=== PATIENT | male | born 2000 | race Caucasian/White ===

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

== ENCOUNTER 2018-09-21 23:58 | Emergency (ER) | payer BC ==
[2018-09-22 00:03] VITALS: BP 104/59; PULSE 87; RESP 16; TEMP 97.5
[2018-09-22] MEDS ORDERED: SODIUM CHLORIDE 0.9% 1,000 ML IV STA (00:13)
[2018-09-22] MEDS ORDERED: KETOROLAC 30 MG/ML 1 ML VIAL IVP STA (00:13)
[2018-09-22] MEDS ORDERED: FAMOTIDINE 20 MG/2 ML VIAL IV STA (00:14)
[2018-09-22 00:39] LABS: Basophils % (A) 0 %; Eosinophils # (A) 0.2 k/uL (0-0.7); Eosinophils % (A) 3 %; HCT 43.8 % (39.0-53.0); HGB 14.1 gm/dL (13.0-17.5); Lymphocytes # (A) 1.8 k/uL (1.0-4.8); Lymphocytes % (A) 28 %; MCH 28.7 pg (25.0-35.0); MCHC 32.1 g/dL (31.0-37.0); MCV 89.4 fL (80.0-100.0); Mean Platelet Volume 8.4; Monocytes # (A) 0.4 k/uL (0-1.0); Monocytes % (A) 7 %; Neutrophils # (A) 3.8 k/uL (1.3-7.7); Neutrophils % (A) 60 %; Platelet Count 163 k/uL (150-450); RDW 14.1 % (11.5-15.5); WBC 6.4 k/uL (4.0-11.0)
[2018-09-22 00:49] LABS: ALT 30 U/L (21-72); AST 21 U/L (17-59); Albumin 3.3 g/dL (3.5-5.0); Alkaline Phosphatase 49 U/L (38-126); Amylase 49 U/L (30-110); Anion Gap 4 mmol/L; Blood Urea Nitrogen 17 mg/dL (9-20); Calcium 8.9 mg/dL (8.4-10.2); Carbon Dioxide 26 mmol/L (22-30); Chloride 114 mmol/L (98-107); Glucose 104 mg/dL (74-99); Lipase 59 U/L (23-300); Potassium 3.8 mmol/L (3.5-5.1); Sodium 144 mmol/L (137-145); Total Bilirubin 0.3 mg/dL (0.2-1.3); Total Protein 5.2 g/dL (6.3-8.2)
--- NOTE | 2018-09-22 01:05 | XR ---
EXAM: XR Kub CLINICAL HISTORY: ITS.REASON XR Reason: abdominal pain TECHNIQUE: X-ray kub. COMPARISON: 10/15/17 FINDINGS/IMPRESSION: 2 upright views of the abdomen/pelvis. IMPRESSION: Bowel gas pattern is nonobstructive. No free air is identified. Phlebolith in the right pelvis again noted. Of note, findings of enteritis seen on the previous CT would likely be occult by plain film, if present.
--- NOTE | 2018-09-22 01:59 | ED ---
Abdominal Pain HPI - General Chief Complaint: Abdominal Pain Stated Complaint: Abd Pain Time Seen by Provider: 09/22/18 00:06 Source: patient Limitations: no limitations - History of Present Illness Initial Comments: 18-year-old male patient presents to the emergency department today for evaluation of upper abdominal pain radiating through to his back. Patient states the pain started approximately one to 2 weeks ago. States that the pain worsens with eating and at times he is unable to eat. States he has been nauseated and has had a couple episodes of vomiting over the last couple of weeks. Patient denies any radiation of the pain into his chest. Denies any shortness of breath with this. Denies any constipation, diarrhea, hematuria, dysuria, urinary urgency, urinary frequency. Denies any history of abdominal surgery. Denies any use of medications. Denies any street drug or alcohol use. Patient denies any recent rash, shortness breath, numbness, tingling, dizziness, weakness, headache, visual changes, or any other complaints. - Related Data Previous Rx's Medication Instructions Recorded Famotidine [Pepcid] 20 mg PO DAILY #30 tablet 09/22/18 Allergies Allergy/AdvReac Type Severity Reaction Status Date / Time No Known Allergies Allergy Verified 09/22/18 00:03 Review of Systems ROS Statement: Those systems with pertinent positive or pertinent negative responses have been documented in the HPI. ROS Other: All systems not noted in ROS Statement are negative. Past Medical History Past Medical History: No Reported History History of Any Multi-Drug Resistant Organisms: None Reported Past Surgical History: No Surgical Hx Reported Past Psychological History: No Psychological Hx Reported Smoking Status: Current every day smoker Past Alcohol Use History: None Reported Past Drug Use History: None Reported General Exam Limitations: no limitations General appearance: alert, in no apparent distress, other (Physical well- developed, well-nourished adult male patient in no acute distress. Vital signs upon presentation are temperature 97.5F, pulse 87, respirations 16, blood pressure 104/59, pulse ox 98% on room air.) Eye exam: Present: normal appearance, PERRL, EOMI. Absent: scleral icterus, conjunctival injection, periorbital swelling ENT exam: Present: normal exam, normal oropharynx, mucous membranes moist Respiratory exam: Present: normal lung sounds bilaterally. Absent: respiratory distress, wheezes, rales, rhonchi, stridor Cardiovascular Exam: Present: regular rate, normal rhythm, normal heart sounds. Absent: systolic murmur, diastolic murmur, rubs, gallop, clicks GI/Abdominal exam: Present: soft, tenderness (Midepigastric tenderness), normal bowel sounds. Absent: distended, guarding, rebound, rigid Neurological exam: Present: alert, oriented X3, CN II-XII intact Psychiatric exam: Present: normal affect, normal mood Skin exam: Present: warm, dry, intact, normal color. Absent: rash Course Vital Signs 09/22/18 00:00 Temperature 97.5 F L Pulse Rate 87 Respiratory 16 Rate Blood Pressure 104/59 O2 Sat by Pulse 98 Oximetry Medical Decision Making - Medical Decision Making 18-year-old male patient presented to the emergency department today for evaluation of upper abdominal pain and nausea 2 weeks. Physical examination was relatively unremarkable. Some mild midepigastric tenderness. Labs reviewed and were unremarkable. Patient did receive Toradol and Pepcid here in the emergency department. Upon reevaluation is resting quite comfortably in bed and had difficulty waking him. Once awake he states he is feeling better. We did discuss possibility of gastritis versus, or dysfunction. He'll be discharged home to follow-up with his primary care physician to have outpatient ultrasound performed. He'll be given a prescription for Pepcid. Return parameters were discussed in detail. He verbalizes understanding and agrees with this plan. - Lab Data Result diagrams: 09/22/18 00:30 09/22/18 00:30 Lab Results 09/22/18 09/22/18 09/22/18 Range/Units 00:30 00:30 00:30 WBC 6.4 (4.0-11.0) k/uL RBC 4.90 (4.30-5.90) m/uL Hgb 14.1 (13.0-17.5) gm/dL Hct 43.8 (39.0-53.0) % MCV 89.4 (80.0-100.0) fL MCH 28.7 (25.0-35.0) pg MCHC 32.1 (31.0-37.0) g/dL RDW 14.1 (11.5-15.5) % Plt Count 163 (150-450) k/uL Neutrophils % 60 % Lymphocytes % 28 % Monocytes % 7 % Eosinophils % 3 % Basophils % 0 % Neutrophils # 3.8 (1.3-7.7) k/uL Lymphocytes # 1.8 (1.0-4.8) k/uL Monocytes # 0.4 (0-1.0) k/uL Eosinophils # 0.2 (0-0.7) k/uL Basophils # 0.0 (0-0.2) k/uL Sodium 144 (137-145) mmol/L Potassium 3.8 (3.5-5.1) mmol/L Chloride 114 H (98-107) mmol/L Carbon Dioxide 26 (22-30) mmol/L Anion Gap 4 mmol/L BUN 17 (9-20) mg/dL Creatinine 0.88 (0.66-1.25) mg/dL Est GFR (CKD-EPI)AfAm >90 (>60 ml/min/1.73 sqM) Est GFR (CKD-EPI)NonAf >90 (>60 ml/min/1.73 sqM) Glucose 104 H (74-99) mg/dL Plasma Lactic Acid Kristofer 0.9 (0.7-2.0) mmol/L Calcium 8.9 (8.4-10.2) mg/dL Total Bilirubin 0.3 (0.2-1.3) mg/dL AST 21 (17-59) U/L ALT 30 (21-72) U/L Alkaline Phosphatase 49 (38-126) U/L Total Protein 5.2 L (6.3-8.2) g/dL Albumin 3.3 L (3.5-5.0) g/dL Amylase 49 (30-110) U/L Lipase 59 (23-300) U/L Urine Color Urine Appearance (Clear) Urine pH (5.0-8.0) Ur Specific [place] (1.001-1.035) Urine Protein (Negative) Urine Glucose (UA) (Negative) Urine Ketones (Negative) Urine Blood (Negative) Urine Nitrite (Negative) Urine Bilirubin (Negative) Urine Urobilinogen (<2.0) mg/dL Ur Leukocyte Esterase (Negative) Ur Squamous Epith Cells (0-4) /hpf Amorphous Sediment (None) /hpf Urine Mucus (None) /hpf 09/22/18 Range/Units 00:40 WBC (4.0-11.0) k/uL RBC (4.30-5.90) m/uL Hgb (13.0-17.5) gm/dL Hct (39.0-53.0) % MCV (80.0-100.0) fL MCH (25.0-35.0) pg MCHC (31.0-37.0) g/dL RDW (11.5-15.5) % Plt Count (150-450) k/uL Neutrophils % % Lymphocytes % % Monocytes % % Eosinophils % % Basophils % % Neutrophils # (1.3-7.7) k/uL Lymphocytes # (1.0-4.8) k/uL Monocytes # (0-1.0) k/uL Eosinophils # (0-0.7) k/uL Basophils # (0-0.2) k/uL Sodium (137-145) mmol/L Potassium (3.5-5.1) mmol/L Chloride (98-107) mmol/L Carbon Dioxide (22-30) mmol/L Anion Gap mmol/L BUN (9-20) mg/dL Creatinine (0.66-1.25) mg/dL Est GFR (CKD-EPI)AfAm (>60 ml/min/1.73 sqM) Est GFR (CKD-EPI)NonAf (>60 ml/min/1.73 sqM) Glucose (74-99) mg/dL Plasma Lactic Acid Kristofer (0.7-2.0) mmol/L Calcium (8.4-10.2) mg/dL Total Bilirubin (0.2-1.3) mg/dL AST (17-59) U/L ALT (21-72) U/L Alkaline Phosphatase (38-126) U/L Total Protein (6.3-8.2) g/dL Albumin (3.5-5.0) g/dL Amylase (30-110) U/L Lipase (23-300) U/L Urine Color Yellow Urine Appearance Cloudy (Clear) Urine pH 6.5 (5.0-8.0) Ur Specific [place] 1.014 (1.001-1.035) Urine Protein Negative (Negative) Urine Glucose (UA) Negative (Negative) Urine Ketones Negative (Negative) Urine Blood Negative (Negative) Urine Nitrite Negative (Negative) Urine Bilirubin Negative (Negative) Urine Urobilinogen <2.0 (<2.0) mg/dL Ur Leukocyte Esterase Negative (Negative) Ur Squamous Epith Cells <1 (0-4) /hpf Amorphous Sediment Few H (None) /hpf Urine Mucus Rare H (None) /hpf - Radiology Data Radiology results: report reviewed, image reviewed Two-view x-ray of the abdomen is obtained. Report was reviewed in its entirety. Impression by Dr. Lopez shows bowel gas pattern is nonobstructive. No free air is identified. Phleboliths in the right pelvis again noted. Disposition Clinical Impression: Abdominal pain Disposition: HOME SELF-CARE Condition: Good Instructions (If sedation given, give patient instructions): Diet for Stomach Ulcers and Gastritis (ED), Abdominal Pain (ED) Additional Instructions: Take medications as directed. Follow-up through primary care physician for ultrasound to rule out gallbladder dysfunction. Return to the emergency department immediately for any new, worsening, or concerning symptoms Prescriptions: Famotidine [Pepcid] 20 mg PO DAILY #30 tablet Is patient prescribed a controlled substance at d/c from ED?: No Referrals: Rc Milan DO [Primary Care Provider] - 1-2 days Time of Disposition: 02:29
[2018-09-22 02:04] LABS: Amorphous Sediment,Urine Few /hpf; Appearance,Urine Cloudy (Clear); Bilirubin,Urine Negative (Negative); Blood,Urine Negative (Negative); Color,Urine Yellow; Glucose,Urine (UA) Negative (Negative); Ketones,Urine Negative (Negative); Leukocyte Esterase,Urine Negative (Negative); Mucus,Urine Rare /hpf; Nitrite,Urine Negative (Negative); PH, Urine 6.5 (5.0-8.0); Protein,Urine Negative (Negative); Specific Gravity,Urine 1.014 (1.001-1.035); Squamous Epithelial Cell,Urine <1 /hpf (0-4); Urobilinogen,Urine <2.0 mg/dL (<2.0)
== END 2018-09-22 02:43 | disposition home or self-care (01) ==
LOC: EC 23:58
DX: R10.13 Epigastric pain (principal); R11.2 Nausea with vomiting, unspecified; F17.200 Nicotine dependence, unspecified, uncomplicated
CPT/HCPCS: 36415; 74018; 80053; 81001; 82150; 83605; 83690; 85025; 96361; 96374; 96375; 99284

== ENCOUNTER 2020-05-30 12:54 | Inpatient (IN) | payer BC, MEDICAID, OTHER ==
--- NOTE | 2020-05-30 13:46 | ED ---
General Adult HPI - General Source: patient, RN notes reviewed, old records reviewed Mode of arrival: ambulatory Limitations: no limitations <Tacho Magana - Last Filed: 05/30/20 14:30> <Keith Carrasco - Last Filed: 05/30/20 16:21> - General Chief complaint: Psychiatric Symptoms Stated complaint: Mental health Time Seen by Provider: 05/30/20 13:00 - History of Present Illness Initial comments: This is a 19-year-old male who presents emergency department stating that he suicidal. Patient states he has attempted multiple times in the past and he was thinking about taking his pills so he decided come in and get help. Patient denies taking any pills. Patient denies any illegal drug use today but he stat ed he did methamphetamine 3 days ago. Patient denies any alcohol today. Patient denies any physical complaints today. Patient denies headache patient denies numbness weakness. Patient denies any lightheadedness dizziness or near syncopal episode. Patient denies chest pain palpitations difficulty breathing shortness breath. Patient denies any recent fever chills or cough per patient denies abdominal pain patient denies nausea vomiting or diarrhea (Tacho Magana) - Related Data Home Medications Medication Instructions Recorded Confirmed No Known Home Medications 05/30/20 05/30/20 Allergies Allergy/AdvReac Type Severity Reaction Status Date / Time No Known Allergies Allergy Verified 05/30/20 13:52 Review of Systems ROS Other: All systems not noted in ROS Statement are negative. <Tacho Magana - Last Filed: 05/30/20 14:30> ROS Other: All systems not noted in ROS Statement are negative. <Keith Carrasco - Last Filed: 05/30/20 16:21> ROS Statement: Those systems with pertinent positive or pertinent negative responses have been documented in the HPI. Past Medical History Past Medical History: No Reported History History of Any Multi-Drug Resistant Organisms: None Reported Past Surgical History: No Surgical Hx Reported Past Psychological History: No Psychological Hx Reported Smoking Status: Current every day smoker Past Alcohol Use History: None Reported Past Drug Use History: Cocaine, Heroin, Marijuana, Methamphetamine <Tacho Magana - Last Filed: 05/30/20 14:30> General Exam Limitations: no limitations <Tacho Magana - Last Filed: 05/30/20 14:30> - General Exam Comments Initial Comments: GENERAL: Patient is well-developed and well-nourished. Patient is nontoxic and well- hydrated and is in no acute distress. ENT: Neck is soft and supple. No significant lymphadenopathy is noted. Oropharynx is clear. Moist mucous membranes. Neck has full range of motion without eliciting any pain. EYES: The sclera were anicteric and conjunctiva were pink and moist. Extraocular movements were intact and pupils were equal round and reactive to light. Eyelids were unremarkable. PULMONARY: Unlabored respirations. Good breath sounds bilaterally. No audible rales rhonchi or wheezing was noted. CARDIOVASCULAR: There is a regular rate and rhythm without any murmurs gallops or rubs. ABDOMEN: Soft and nontender with normal bowel sounds. SKIN: Skin is clear with no lesions or rashes and otherwise unremarkable. NEUROLOGIC: Patient is alert and oriented x3. Cranial nerves II through XII are grossly intact. Motor and sensory are also intact. Normal speech, volume and content. Symmetrical smile. MUSCULOSKELETAL: Normal extremities with adequate strength and full range of motion. LYMPHATICS: No significant lymphadenopathy is noted PSYCHIATRIC: Patient states he suicidal and contemplating taking all of his pills. (Tacho Magana) Course Vital Signs 05/30/20 12:57 Temperature 97.1 F L Pulse Rate 108 H Respiratory 16 Rate Blood Pressure 125/65 O2 Sat by Pulse 100 Oximetry Medical Decision Making <Tacho Magana - Last Filed: 05/30/20 14:30> <Keith Carrasco - Last Filed: 05/30/20 16:21> - Medical Decision Making Dr. Carrasco will be taking over the care of this patient at 3 PM (Tacho Magana) Patient was sent out to me by previous shift physician, Dr. Magana. Briefly, patient is a 19-year-old male presents to the emergency Department for suicidal ideation. Plan was to follow-up with EPS recommendations. Patient was evaluated by EPS and will admit patient to inpatient psychiatry. (Keith Carrasco) Disposition <Tacho Magana - Last Filed: 05/30/20 14:30> Decision Time: 16:21 <Keith Carrasco - Last Filed: 05/30/20 16:21> Clinical Impression: Suicidal ideation Disposition: ADMITTED IP TO THIS HOSP Condition: Fair Referrals: None,Stated [Primary Care Provider] - 1-2 days
[2020-05-30] MEDS ORDERED: MAG HYDROX/AL HYDROX/SIMETH 30 ML CUP PO PRN (16:41)
[2020-05-30] MEDS ORDERED: LORazepam 1 MG TAB PO PRN (16:41)
[2020-05-30] MEDS ORDERED: MAGNESIUM HYDROXIDE 2,400 MG/10 ML CUP PO PRN (16:41)
[2020-05-30] MEDS ORDERED: hydrOXYzine pamoate 25 MG CAP PO PRN (16:45)
[2020-05-30] MEDS: NICOTINE 21MG/24HR PATCH TRANSDERM SCH (22:22)
[2020-05-31] MEDS: NICOTINE 21MG/24HR PATCH TRANSDERM SCH (08:35)
[2020-05-31] MEDS: ACETAMINOPHEN TAB 325 MG TAB PO PRN ×2 (08:36→17:54)
[2020-05-31 09:34] LABS: Basophils % (A) 0 %; Eosinophils # (A) 0.1 k/uL (0-0.7); Eosinophils % (A) 2 %; HCT 52.9 % (39.0-53.0); HGB 16.8 gm/dL (13.0-17.5); Lymphocytes # (A) 1.7 k/uL (1.0-4.8); Lymphocytes % (A) 31 %; MCH 27.5 pg (25.0-35.0); MCHC 31.7 g/dL (31.0-37.0); MCV 86.7 fL (80.0-100.0); Mean Platelet Volume 8.4; Monocytes # (A) 0.3 k/uL (0-1.0); Monocytes % (A) 6 %; Neutrophils # (A) 3.3 k/uL (1.3-7.7); Neutrophils % (A) 59 %; Platelet Count 264 k/uL (150-450); RDW 13.8 % (11.5-15.5); WBC 5.6 k/uL (3.8-10.6)
[2020-05-31 09:58] LABS: ALT 17 U/L (4-49); AST 23 U/L (17-59); African American GFR (CKD) >90 (>60 ml/min/1.73 sqM); Albumin 4.5 g/dL (3.5-5.0); Alkaline Phosphatase 87 U/L (38-126); Anion Gap 7 mmol/L; Blood Urea Nitrogen 13 mg/dL (9-20); Calcium 10.1 mg/dL (8.4-10.2); Carbon Dioxide 29 mmol/L (22-30); Chloride 107 mmol/L (98-107); Glucose 117 mg/dL (74-99); Non-African American GFR(CKD) >90 (>60 ml/min/1.73 sqM); Potassium 4.4 mmol/L (3.5-5.1); Sodium 143 mmol/L (137-145); Total Bilirubin 1.2 mg/dL (0.2-1.3); Total Protein 7.5 g/dL (6.3-8.2)
[2020-05-31] MEDS ORDERED: hydrOXYzine HCL 50 MG/ML 1 ML VIAL IM PRN (11:03)
[2020-05-31] MEDS ORDERED: HALOPERIDOL LACTATE 5 MG/ML 1 ML VIAL IM PRN (11:04)
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
[2020-05-31] MEDS: FLUoxetine HCL 10 MG CAP PO SCH (11:15)
[2020-05-31 11:54] LABS: Hemoglobin A1C 5.7 % (4.0-6.0)
[2020-05-31 12:33] VITALS: BMI 23.8
[2020-05-31] MEDS ORDERED: OLANZapine 5 MG TAB PO SCH (21:00)
[2020-05-31] MEDS: DIVALPROEX ER 500 MG TAB.ER.24H PO SCH (21:25)
[2020-06-01] MEDS: NICOTINE 21MG/24HR PATCH TRANSDERM SCH (08:24)
[2020-06-01] MEDS: FLUoxetine HCL 10 MG CAP PO SCH (08:24)
--- NOTE | 2020-06-01 10:09 | P.PN ---
Progress Note - Text Progress Note Date: 06/01/20 Interval History: Patient was seen resting in bed and was directable and agreeable to speak with financial writer in his room with no one else present. Patient filed a 72 hour notice for discharge. Patient reports that he feels like this inpatient psychiatric admission is not exactly what he expected. He reports that he did not expect to be checked on multiple times throughout the day. This provider pointed him that he is on suicide precautions due to the severity of his prior attempts at suicide. Today he is not endorsing any suicidal or homicidal ideation, intention, and/or plan. He is not reporting any auditory or visual hallucinations. He is been adherent with his medications and denies any side effects at this time. He reports that he was able to speak with his mother and grandfather and states that he are allowing him to return home upon discharge. Mental Status Exam: General Appearance: Patient appears to be stated age is alert, directable, and cooperative. Behavior: He is lying in bed covered with his bedsheets. Eye contact is intermittent. Speech: Patient's speech is fluent and nonpressured. Mood/Affect: Mood is improving mildly, affect is congruent and blunted. Suicidality/Homicidality: Patient denies having any suicidal or homicidal ideation intent or plan. Perceptions: Patient denies any visual hallucinations and denies any auditory hallucinations Though content/process: There is no evidence of any delusional thought content and thought process is linear and goal-directed. Fixation on discharge. Memory and concentration: AOX3, grossly intact for the purposes of this session Judgment and insight: Poor, slightly improving Assessment Schizoaffective disorder, bipolar type Polysubstance use disorder Tobacco use disorder Rule out post dramatic stress disorder Rule out antisocial personality disorder Plan: -Patient continues to meet criteria for inpatient psychiatric admission for symptom stabilization and safety. Patient has signed adult voluntary form and medication consent and was placed in patient's chart. Patient filed a 72 hour notice yesterday. -Medications: Depakote ER 500 mg by mouth at bedtime for mood stabilization Prozac 30 mg by mouth daily for depression/anxiety/PTSD Increase Zyprexa to 10 mg by mouth at bedtime for mood stabilization/bipolar depression -When necessary Vistaril and Haldol for agitation/aggression. -NRT - nicotine patch -SW on board for discharge planning. Encouraged the patient to participate in milieu.
[2020-06-01] MEDS: OLANZapine 10 MG TAB PO SCH (21:25)
[2020-06-01] MEDS: DIVALPROEX ER 500 MG TAB.ER.24H PO SCH (21:33)
[2020-06-02] MEDS: FLUoxetine HCL 10 MG CAP PO SCH (08:22)
[2020-06-02] MEDS: NICOTINE 21MG/24HR PATCH TRANSDERM SCH (08:22)
--- NOTE | 2020-06-02 11:14 | P.PN ---
Progress Note - Text Progress Note Date: 06/02/20 Interval History: Patient was seen resting in bed and was directable and agreeable to speak with telegraphic typewriter operator in his room with no one else present. Patient filed a 72 hour notice for discharge on 05/31/2020 at 1824. Currently the patient is not reporting any suicidal or homicidal ideation, intention, and/or plan. Patient is requesting discharge as he feels like being in inpatient psychiatric unit and being locked up is increasing his anxiety. He is otherwise reporting that his depression has improved significantly. He is future oriented. He reports that he plans to return home and to follow up with his outpatient treatment so that he may be there for his fianc and children. He refused to take Depakote last night as he feels like the medication except him feel "funny and odd." He is otherwise adherent with his Prozac and Zyprexa. He reports no significant side effects of those medications. He denies any auditory or visual hallucinations. Mental Status Exam: General Appearance: Patient appears to be stated age is alert, directable, and cooperative. Behavior: Patient gets out of bed when directed. Eye contact is fair. Insight normal psychomotor activity. Speech: Patient's speech is fluent and nonpressured. Monotone. Mood/Affect: Mood is improving mildly, affect is congruent and constricted in range. Suicidality/Homicidality: Patient denies having any suicidal or homicidal ideation intent or plan. Perceptions: Patient denies any visual hallucinations and denies any auditory hallucinations Though content/process: There is no evidence of any delusional thought content and thought process is linear and goal-directed. Memory and concentration: AOX3, grossly intact for the purposes of this session Judgment and insight: Improving mildly. Assessment Schizoaffective disorder, bipolar type Polysubstance use disorder Tobacco use disorder Rule out post dramatic stress disorder Rule out antisocial personality disorder Plan: -Patient continues to meet criteria for inpatient psychiatric admission for symptom stabilization and safety. Patient has signed adult voluntary form and medication consent and was placed in patient's chart. Patient filed a 72 hour notice on 05/31/2020. -Medications: We will discontinue Depakote at this time as per patient preference. Increase Prozac to 40 mg by mouth daily for depression/anxiety/PTSD Continue Zyprexa 10 mg by mouth at bedtime for mood stabilization/bipolar depression -When necessary Vistaril and Haldol for agitation/aggression. -NRT - nicotine patch -SW on board for discharge planning. Encouraged the patient to participate in milieu.
--- NOTE | 2020-06-02 21:06 | P.MDCNMH ---
History of Present Illness H&P Date: 06/02/20 Chief Complaint: medical evaluation 19 year old male with depression patient comes in due to depressioni and suicidal ideation , he admits to not taking his meds patient denies any medical concerns , denies URI symptoms, GI bleeding , abd pain , nausea or vomiting, denies any diarrhea, or focal neuro deficits, denies SOB, or chest pain Review of Systems Pertinent positives as noted in HPI. All other systems were reviewed and are negative Past Medical History Past Medical History: No Reported History History of Any Multi-Drug Resistant Organisms: None Reported Past Surgical History: No Surgical Hx Reported Past Psychological History: No Psychological Hx Reported Smoking Status: Current every day smoker Past Alcohol Use History: None Reported Past Drug Use History: Cocaine, Heroin, Marijuana, Methamphetamine Medications and Allergies Home Medications Medication Instructions Recorded Confirmed Type No Known Home Medications 05/30/20 05/30/20 History Allergies Allergy/AdvReac Type Severity Reaction Status Date / Time No Known Allergies Allergy Verified 05/30/20 13:52 Physical Exam Vitals: Vital Signs Temp 06/02/20 18:23 98.3 F 06/02/20 14:18 98.3 F 06/01/20 21:32 98.2 F 06/01/20 21:29 98.2 F Constitutional: No acute distress, conversant, pleasant Eyes: Anicteric sclerae, moist conjunctiva, no lid-lag Pupils equal round reactive to light ENMT: NC/AT Oropharynx clear, no erythema, or exudates Neck: Supple, FROM, no masses, or JVD No carotid bruits No thyromegaly Lungs: Clear to auscultation Clear to percussion Normal respiratory effort, no accessory muscle use Cardiovascular: Heart regular in rate and rhythm, No murmurs, gallops, or rubs No peripheral edema Abdominal: Soft Nontender, no guarding, rebound or rigidity Abdomen moving with respiration Normoactive bowel sounds No hepatomegaly, No splenomegaly No palpable mass No abdominal wall hernia noted Skin: Normal temperature, tone, texture, turgor No induration No subcutaneous nodules No rash, lesions No ulcers Extremities: No digital cyanosis No clubbing Pedal pulses intact and symmetrical Radial pulses intact and symmetrical No calf tenderness Psychiatric: Alert and oriented to person, place and time Appropriate affect fair judgement Neuro Muscles Strength 5/5 in all 4 extremities Sensation to light touch grossly present throughout Cranial nerves II-XII grossly intact No focal sensory deficits Lymphatics: no palpable cervical or supraclavicular , or inguinal lymph nodes Cranial Nerve Examination - Cranial Nerves Cranial Nerve II- Optic: Intact Cranial Nerve III- Oculomotor: Intact Cranial Nerve IV- Trochlear: Intact Cranial Nerve V- Trigeminal: Intact Cranial Nerve - Abducens: Intact Cranial Nerve VII- Facial: Intact Cranial Nerve VIII- Auditory: Intact Cranial Nerve IX- Glossopharyngeal: Intact Cranial Nerve X- Vagus: Intact Cranial Nerve XI- Accessory: Intact Cranial Nerve XII- Hypoglossal: Intact Results CBC & Chem 7: 05/31/20 08:54 05/31/20 08:54 Assessment and Plan Assessment: major depression , suicidal ideation management per psych tobacco smoking nicotine replacement therapy polysubstance abuse counseled to quit drug of abuse Thank you for allowing us to participate in the care of this patient. We will follow peripherally. Do not hesitate to contact us with questions. Someone can be reached from the [facility] hospitalist group at all hours of the day at [phone].
[2020-06-02] MEDS: DIVALPROEX ER 500 MG TAB.ER.24H PO SCH (22:12)
[2020-06-02] MEDS: OLANZapine 10 MG TAB PO SCH (22:13)
[2020-06-03 06:45] VITALS: BP 98/53; PULSE 52; RESP 17; TEMP 97.7
[2020-06-03] MEDS: NICOTINE 21MG/24HR PATCH TRANSDERM SCH (08:43)
[2020-06-03] MEDS ORDERED: FLUoxetine HCL 20 MG CAP PO SCH (09:00)
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
== END 2020-06-03 11:35 | disposition home or self-care (01) | DRG 885 ==
LOC: EC 12:54 → 3MHU 16:30
PROVIDERS: ADMIT Psychiatry & Neurology Psychiatry; ATTEND Psychiatry & Neurology Psychiatry
DX: F25.0 Schizoaffective disorder, bipolar type (principal); R45.851 Suicidal ideations; Z59.0 Homelessness; F15.10 Other stimulant abuse, uncomplicated; Z20.828 Contact with and (suspected) exposure to other viral communicable diseases; F12.90 Cannabis use, unspecified, uncomplicated; F41.9 Anxiety disorder, unspecified; R45.87 Impulsiveness; F17.210 Nicotine dependence, cigarettes, uncomplicated; Z71.6 Tobacco abuse counseling; Z62.810 Personal history of physical and sexual abuse in childhood; Z65.3 Problems related to other legal circumstances
CPT/HCPCS: 80053; 82075; 83036; 84443; 85025; 99285